=== PATIENT | female | born 1985 | race Caucasian/White ===

== ENCOUNTER 2020-01-01 12:56 | Inpatient (IN) ==
--- NOTE | 2020-01-01 13:26 | History & Physical Report ---
Date of Service January 01, 2020 Assessment & Plan (1) Encounter for induction of labor: - Induction of labor with mechanical dilatation and pitocin per protocol. History of Present Illness Primary Care Provider: Fabiana Mcneal PA-C Karuna is a 34 y/o female EDC 01/01/20; LMP 03/27/19; she comes for induction of labor; no complications during this . She had a multani balloon placed yesterday and reported minimal bleeding afterwards. Positive contractions; pos movement; no fluid loss. External FHT and external uterine monitors used; Category I tracing; minimal FHT variability. Had regular appointments with OB. Blood type: A positive GBS: Negative Antibody screen: Negative Rubella: Immune VDRL/RPR: Neg Gonorrhea: Neg Chlamydia: Neg HIV: Neg HbSAg: Neg Allergies Allergy/AdvReac Type Severity Reaction Status Date / Time No Known Allergies Allergy Verified 12/31/19 19:16 Home Medications Home Medications Medication Instructions Recorded Confirmed Type prenat.vits,montana,jrb-kkww-hagid 1 tab PO DAILY 05/18/19 01/01/20 History Patient History Medical History Anxiety and depression Encounter for anatomic survey Gall bladder disease Hx of varicella with history of miscarriage Surgical History History of ovarian cystectomy S/P cholecystectomy [place] teeth removed Family History Mother Twins live born in hospital Social History Preferred Language: Telugu Communication Ability: Effective Human Resources Consultant Required: No Beliefs That Will Affect Care: None marital status: Single marital status details: Armin Garrido (32) [phone] Current Living Situation: Family and Significant Other Current Living Situation Comment: boyfriend, daughter current occupational status: employed current occupation: medical office Other Information That Helps Us Care for You: No Feels Safe at Home: Yes Safety Concerns: Feels Safe At This Time Smoking Status: Former smoker Do You Dip or Chew Tobacco: No ; Second Hand Exposure: No ; Tobacco Cessation Education Requested by Patient: No Hx Alcohol Use: No Hx Substance Use: No Review of Systems Constitutional: denies fever, chills, sweat, headache Respiratory: denies shortness of breath, difficulty breathing Cardiac: denies chest pain, palpitations, chest pressure Breast: denies breast pain : denies dysuria Physical Exam Physical Exam: General: Alert, oriented. No acute distress. Cardiac: Regular rate and rhythm, no murmurs/rubs/gallops. Respiratory: Clear to auscultation bilaterally a/p, no wheezes/rales/rhonchi. No increased work of breathing. Symmetrical chest rise. No respiratory distress. Abdomen: Gravid; FH 38cm; Pos FHTs; Presentation: Vertex Pelvic: Dilation 1cm; Effacement 70%; Station -[address] Espinoza Lower Extremities: No lower extremity edema or swelling. No deep calf pain. James's negative bilaterally Results & Data Vital Signs (Past 12 Hours) Vital Signs Pulse BP 01/01/20 13:18 86 113/71 Supervising Physician Co-Signing Physician Notes Resident Physician Supervision Note: I interviewed and examined the patient. Discussed with resident and agree with findings and plan as documented in the note. Any exceptions or clarifications are listed here: induction of labor, elective. Admit to L&D, plans for pitocin, epidural, will AROM if needed. Documented By: Tonya Espinoza, Resident Activity Tracking Resident Involvement: Resident Care Provided Care Provided: OB Delivery
[2020-01-01] MEDS ORDERED: OXYTOCIN 30 UNITS/500 ML BAG IV PRN ×3 (13:31→23:41)
[2020-01-01 13:53] LABS: Hematocrit (blood only) 36.5 % (37-47); Hemoglobin 12.5 g/dL (12.0-16.0); Mean Corpuscular Hemoglobin 29.5 pg (25-34); Mean Corpuscular Volume 86.1 fL (80-100); Mean Platelet Volume 11.1 fL (7.4-10.4); Platelet Count 177 K/uL (130-400); RDW Coefficient of Variation 13.1 % (11.5-14.5); RDW Standard Deviation 41.1 fL (36.4-46.3); Red Blood Count 4.24 M/uL (4.2-5.4); White Blood Count 9.55 K/uL (4.8-10.8)
[2020-01-01] MEDS: LACTATED RINGER'S 1,000 ML IV PRN ×2 (14:30→20:18)
[2020-01-01 14:34] LABS: Mean Corpuscular Hgb Conc 34.2 g/dL (32-36)
[2020-01-01] MEDS ORDERED: ePHEDrine sulfate 50 MG/ML AMP ONE (19:38)
[2020-01-01] MEDS ORDERED: BUPIVACAINE 0.25% 30 ML VIAL ONE (19:38)
[2020-01-01] MEDS ORDERED: fentaNYL 2MCG/ML ROPIV 1.25MG/ML 100 ML BAG EPI ONE (19:39)
[2020-01-01] MEDS ORDERED: fentaNYL citrate 100 MCG/2 ML VIAL ONE (19:39)
[2020-01-01] MEDS ORDERED: NALOXONE HCL 1 MG in SODIUM CHLORIDE 0.9% 1000ML 1,000 ML IV PRN (19:56)
[2020-01-01] MEDS ORDERED: DiphenhydrAMINE HCL 50 MG/ML VIAL IV PRN (19:56)
[2020-01-01] MEDS ORDERED: ePHEDrine sulfate 50 MG/ML AMP IV PRN (19:56)
[2020-01-01] MEDS ORDERED: fentaNYL 2MCG/ML ROPIV 1.25MG/ML 100 ML BAG EPI PRN (19:56)
[2020-01-01] MEDS ORDERED: NALOXONE HCL 0.4 MG/1 ML VIAL/CARP IV PRN (19:56)
[2020-01-01] MEDS ORDERED: ONDANSETRON INJ 2 MG/ML 2 ML VIAL IV PRN (19:56)
--- NOTE | 2020-01-01 20:00 | Anesthesiology Consultation ---
Date of Service January 01, 2020 Covid 19 negative on 12/24/19. Assessment & Plan Chart Review Chart Review: Patient NOT seen in Pre Admission Testing and Acceptable Risk for Labor Epidural Consults Requested none ASA ASA2 Proposed Anesthesia Anesthesia Type: Labor Epidural and CSE Risk / Benefits Reviewed With: PT / POA / Parent / Guardian, Accepts Plan and Informed Consent Obtained History Height/Weight Height: 5 ft 2 in Weight: 93.894 kg Allergies Allergy/AdvReac Type Severity Reaction Status Date / Time No Known Allergies Allergy Verified 12/31/19 19:16 Medications Home Medications Medication Instructions Recorded Confirmed Last Taken prenat.vits,[place]ana,nut-jwfj-cxoxr 1 tab PO DAILY 05/18/19 01/01/20 12/30/19 12:00 Active Medications Generic Name Dose Route Start Last Admin Trade Name Freq PRN Reason Stop Dose Admin Lactated Ringer's 1,000 mls @ 125 mls/hr 01/01/20 13:31 01/01/20 14:30 Lr IV 01/03/20 13:30 125 mls/hr .Q8H PRN Administration L&D Protocol Protocol Oxytocin 30 units in 500 mls @ 9 mls/hr 01/01/20 13:31 01/01/20 17:50 Pitocin IV 01/03/20 13:30 0.54 units/hr .Q24H PRN 9 mls/hr Labor Induction/Augmentation Titration Protocol 0.54 UNITS/HR NPO Date Last Intake of Fluids: 01/01/20 Time Last Intake of Fluids: 18:00 Date Last Intake of Solids: 01/01/20 Time Last Intake of Solids: 05:00 Past Medical History Medical History Anxiety and depression Encounter for anatomic survey Gall bladder disease Hx of varicella with history of miscarriage Exercise / Class Metabolic Activity II 4-5 Yardwork/Stairs/Walk up hill Past Family History Family History Mother Twins live born in hospital Past Surgical History Surgical History History of ovarian cystectomy S/P cholecystectomy [place] teeth removed Past Anesthesia History No Hx of Anesthesia Complications and No Family Hx of Anesthesia Complications History of PONV No Hx of PONV and No Hx of Motion Sickness Social History Smoking Status: Former smoker Do You Dip or Chew Tobacco: No Hx Alcohol Use: No Hx Substance Use: No substance use type: does not use Review of Systems no chest pain or sob Physical Exam Vital Signs Last Vital Signs Temp 36.9 C 01/01/20 19:30 Pulse 89 01/01/20 20:01 Resp 20 01/01/20 19:30 BP 122/71 01/01/20 19:47 Pulse Ox 91 01/01/20 20:01 SpO2 100 ENMT Mouth: no TMJ abnormality Thyromental Distance: > or= 3.5 Finger Breadths Mallampati Class: II Neck normal visual inspection Respiratory normal respiratory effort Auscultation: lungs clear to auscultation bilaterally Cardiovascular Rate/Rhythm: regular rate and regular rhythm Musculoskeletal Spine: normal cervical ROM Neurologic moves all extremities Psychiatric Orientation: alert and oriented x 3 Testing Laboratory Results 01/01/20 13:40
--- NOTE | 2020-01-01 22:56 | Delivery Summary ---
Vaginal Delivery Summary Date of Service January 01, 2020 Vaginal Delivery Summary Vaginal Delivery Summary: Pre-delivery diagnoses: 32yp @ 40 0/7, eIOL Post-delivery diagnoses: same Procedure: spontaneous vaginal delivery Surgeon: Tonya Espinoza DO Complications: none Findings: Viable female . Apgars: 10/10 . Weight pending, please see nursery records Estimated blood loss: 300ml Description of delivery: The patient progressed to complete with epidural anesthesia. She then began to push. She spontaneously vaginally delivered a viable from the cephalic presentation. The head delivered in BETTIE position. The anterior shoulder delivered, followed by the posterior shoulder, followed by the body. No nuchal cord, however true knot noted in cord. The baby was placed on mother's abdomen and a spontaneous cry was heard. Delayed cord clamping was employed, and the cord was doubly clamped and cut. Cord blood was obtained. The placenta was delivered spontaneously intact with a 3-vessel cord. The uterus and vagina were swept of clots and debris. IV pitocin was given. The uterus became firm. The cervix, vagina, and perineum were inspected and no lacerations were noted. Excellent hemostasis was observed. The mother and baby are recovering in stable and good condition in the room. Sponge and instrument counts were correct x 2. Tonya Espinoza DO [facility] [place]
--- NOTE | 2020-01-01 23:10 | Anesthesia Procedure Note ---
Date of Service January 01, 2020 Anesthesia Post Epidural Note Vital Signs Vital Signs: Temp Pulse Resp BP Pulse Ox 36.8 C 80 18 104/57 L 97 01/01/20 21:37 01/01/20 22:57 01/01/20 21:37 01/01/20 22:57 01/01/20 22:02 Pain Intensity Abdomen: Pain Intensity: 2 Notes Mental Status: alert / awake / arousable and participated in evaluation Nausea / Vomiting: adequately controlled Pain: adequately controlled Airway Patency, RR, SpO2: stable & adequate BP & HR: stable & adequate Hydration State: stable & adequate Neuraxial Anesthesia: was administered and sensory block is resolving Anesthetic Complications: no major complications apparent and Pt Satisfied with anesthetic care Epidural: Removed without complications and With tip intact
[2020-01-01] MEDS ORDERED: bisacodyL 10 MG SUPP PR PRN (23:41)
[2020-01-01] MEDS ORDERED: OXYCODONE/ACETAMINOPHEN 5mg/325mg TAB PO PRN (23:41)
[2020-01-01] MEDS ORDERED: ACETAMINOPHEN 325 MG TAB PO PRN (23:41)
[2020-01-01] MEDS ORDERED: SUPERCREAM 0.870% 15 GM JAR EXT PRN (23:41)
[2020-01-01] MEDS ORDERED: HYDROCORTISONE ACETATE 25 MG SUPP PR PRN (23:41)
[2020-01-01] MEDS ORDERED: DIPHTHERIA/TETANUS/PERTUSSIS 0.5 ML SYR/VIAL IM ONE (23:41)
[2020-01-01] MEDS ORDERED: BENZOCAINE 20% AER SPR 82.5 GM CAN EXT PRN (23:41)
--- NOTE | 2020-01-02 06:28 | Obstetrical Progress Note ---
Date of Service <Farzad Gutierrez MD - Last Filed: 01/02/20 06:49> January 02, 2020 Assessment & Plan <Farzad Gutierrez MD - Last Filed: 01/02/20 06:49> (1) : - Feels well today. Eating well, voiding well, ambulating well. - Pain well controlled with analgesics. - Routine care - After discharge will have 6 week followup. Weeks of gestation: 25 weeks Qualified Code(s): Z3A.25 - 25 weeks gestation of Subjective <Farzad Gutierrez MD - Last Filed: 01/02/20 06:49> Karuna is a 34 y/o female ; PPD #1 following spontaneous vaginal delivery; doing well this morning; light abdominal cramping & 3/10 pain well managed on analgesics; voiding well; tolerating meals overnight and able to ambulate some; some persistent spotting with some improvement this morning. Review of Systems Constitutional: denies fever, chills, sweat, headache Respiratory: denies shortness of breath, difficulty breathing Cardiac: denies chest pain, palpitations, chest pressure Breast: denies breast pain : denies dysuria Physical Exam <Farzad Gutierrez MD - Last Filed: 01/02/20 06:49> General: Alert, oriented. No acute distress. Cardiac: Regular rate and rhythm, no murmurs/rubs/gallops. Respiratory: Clear to auscultation bilaterally a/p, no wheezes/rales/rhonchi. No increased work of breathing. Symmetrical chest rise. No respiratory distress. Abdomen: Soft, nontender, nondistended. Bowel sounds present. Uterus: Uterine fundus firm, palpable 1cm below umbilicus. Lower Extremities: No lower extremity edema or swelling. No deep calf pain. James's negative bilaterally. Results & Data <Farzad Gutierrez MD - Last Filed: 01/02/20 06:49> Vital Signs (Past 12 Hours) Vital Signs Temp Pulse Pulse Resp BP BP Pulse Ox 01/02/20 03:55 37 C 66 16 103/67 01/02/20 01:00 36.7 C 87 16 103/68 01/02/20 00:27 90 106/65 07/18/20 00:12 90 105/71 20 23:57 88 101/72 01/01/20 23:42 77 109/59 L 01/01/20 23:27 77 116/64 20 23:12 76 117/60 20 22:57 80 104/57 L 01/01/20 22:42 90 95/59 L 01/01/20 22:27 90 96/52 L 01/01/20 22:12 92 H 125/59 L 01/01/20 22:02 125 H 97 01/01/20 21:57 119 H 98 01/01/20 21:52 101 H 97 01/01/20 21:47 74 95 01/01/20 21:44 75 94 01/01/20 21:42 83 114/57 L 95 01/01/20 21:38 98 H 94 01/01/20 21:37 36.8 C 83 18 95 01/01/20 21:33 81 90 01/01/20 21:32 83 96 01/01/20 21:27 97 H 107/62 86 L 01/01/20 21:26 91 H 88 L 01/01/20 21:22 79 95 01/01/20 21:17 68 95 01/01/20 21:12 69 107/59 L 95 01/01/20 21:07 86 97 01/01/20 21:02 75 96 01/01/20 20:57 80 96 20 20:56 72 108/66 20 20:53 89 111/65 20 20:52 72 97 20 20:50 77 110/58 L 20 20:47 67 109/57 L 98 20 20:44 70 120/63 20 20:42 100 H 98 20 20:37 85 119/68 98 20 20:35 80 115/58 L 20 20:32 82 125/62 98 1720 20:29 75 127/70 20 20:27 90 99 20 20:24 90 133/79 20 20:21 101 H 100 20 20:18 96 H 183/72 H 01/01/20 20:16 95 H 100 01/01/20 20:14 90 126/93 01/01/20 20:11 93 H 117/75 100 01/01/20 20:06 106 H 100 01/01/20 20:05 93 H 121/77 01/01/20 20:01 89 91 01/01/20 19:47 82 122/71 01/01/20 19:30 36.9 C 20 01/01/20 18:48 78 127/75 <Tonya Espinoza DO - Last Filed: 01/02/20 07:37> Co-Signing Physician Notes Resident Physician Supervision Note: I was present with Dr. Garrett during the history and exam. I discussed the case with the resident and agree with the findings and plan as documented in the note. Any exceptions or clarifications are listed here: PPD#1 doing well. Desires discharge today - delivered at 10pm last night, is aware she would need to stay for 24h after delivery. Baby may or may not be discharged; if no discharge for baby, she would like to stay. Documented By: Tonya Espinoza DO Resident Activity Tracking <Farzad Gutierrez MD - Last Filed: 01/02/20 06:49> Resident Involvement: Resident Care Provided Care Provided: OB Delivery
[2020-01-02] MEDS ORDERED: PRENATAL VITAMIN 1 TAB PO SCH (08:00)
[2020-01-02 08:16] LABS: Hematocrit (blood only) 35.8 % (37-47); Hemoglobin 12.3 g/dL (12.0-16.0)
[2020-01-02] MEDS: DOCUSATE SODIUM 100 MG CAP PO SCH ×2 (08:30→20:21)
[2020-01-02] MEDS: IBUPROFEN 600 MG TAB PO PRN ×4 (08:32→20:21)
[2020-01-02] MEDS ORDERED: NON-FORMULARY MEDICATION (Prenat.Vits,Cal,Min-Iron-Folic 1 TAB) PO SCH (09:00)
[2020-01-02] MEDS ORDERED: bisacodyL 5 MG TABEC PO SCH (20:00)
== END 2020-01-03 | disposition home or self-care (01) | DRG 807 ==
LOC: 4S1 12:56 → 4S2 01-02 00:45